=== PATIENT | male | born 1985 | race Hispanic/Latino ===

== ENCOUNTER 2024-11-28 12:44 | Emergency (ER) | payer OTHER ==
[~2024-11-28] VITALS: Ht 175.3 cm; Wt 144.2 kg
[2024-11-28 12:49] VITALS: PULSE 81; RESP 16; TEMP 98.6
[2024-11-28] MEDS: DEXAMETHASONE 4 MG TAB PO STA (13:08)
[2024-11-28 13:17] VITALS: BP 147/95; O2SAT 100
== END 2024-11-28 13:15 | disposition home or self-care (01) ==
LOC: ER 12:56
DX: R09.89 Other specified symptoms and signs involving the circulatory and respiratory systems (principal); R59.1 Generalized enlarged lymph nodes; I10 Essential (primary) hypertension; R73.03 Prediabetes; G47.30 Sleep apnea, unspecified; G47.00 Insomnia, unspecified
CPT/HCPCS: 99283; J8540